=== PATIENT | female | born 1985 | race Caucasian/White ===

== ENCOUNTER 2019-10-12 08:56 | Emergency (ER) | payer MEDICAID ==
[~2019-10-12] VITALS: Ht 157.5 cm; Wt 94.0 kg
[2019-10-12 09:00] VITALS: BP 132/98
--- NOTE | 2019-10-12 09:47 | NUR ---
PT WAS IN HER ROOM AND TALKING NON-SENSE. RN HAD LEFT THE ROOM. 2 TECH WERE OUTSIDE THE DOOR. THE PATIENT DECIDED TO LEAVE BEFORE BEING SEEN. TECH ALLOWED THE PATIENT TO LEAVE AND DID NOT INFORM RN OR MD OF ATTEMPT TO LWOP. CHARGE NURSE AND MICK NOTIFIED. LEONIE LUBB-TEX CALLED TO LOOK FOR THE PATIENT
== END 2019-10-12 10:00 | disposition left against medical advice (07) ==
LOC: ER 08:57
DX: Z13.39 Encounter for screening examination for other mental health and behavioral disorders (principal); Z53.21 Procedure and treatment not carried out due to patient leaving prior to being seen by health care provider

== ENCOUNTER 2019-11-07 18:07 | Emergency (ER) | payer MEDICAID ==
[~2019-11-07] VITALS: Ht 157.5 cm; Wt 81.0 kg
[2019-11-07 18:28] LABS: CLARITY,URINE SLIGHTLY CLOUDY (Clear); COLOR,URINE YELLOW (Yellow); GLUCOSE, URINE NEGATIVE (Neg); KETONES,URINE 15 mg/dl (Neg); LEUKOCYTE ESTERASE ,URINE TRACE (Neg); NITRITES, URINE NEGATIVE (Neg); OCCULT BLOOD,URINE NEGATIVE (Neg); PROTEIN,URINE TRACE mg/dl (Neg); URINE HCG NEGATIVE (NEG); UROBILINOGEN,URINE 0.2 E.U/dL (0.2-1.0)
[2019-11-07 18:34] LABS: UA COLLECTION TYPE CLN CATCH MIDSTREAM
[2019-11-07 18:36] LABS: MUCUS STRANDS MANY /LPF (Neg); SQUAMOUS EPITHELIAL CELL,UR MANY /LPF (FEW)
[2019-11-07 18:38] LABS: HYALINE CASTS 0-3 /LPF (NEGATIVE)
[2019-11-07 18:40] LABS: BACTERIA,URINE 3+ /HPF (Neg); RBC,URINE 0-2 /HPF (0-2); WBC,URINE 0-4 /HPF (0-4); YEAST FEW /HPF (NEGATIVE)
[2019-11-07 18:42] LABS: URINE AMPHETAMINE SCREEN NEGATIVE (Neg); URINE BARBITUATE SCREEN NEGATIVE (Neg); URINE BENZODIAZEPINES SCREEN NEGATIVE (Neg); URINE CANNABINOID SCREEN POSITIVE (Neg); URINE COCAINE SCREEN NEGATIVE (Neg); URINE METHADONE SCREEN NEGATIVE (Neg); URINE OPIATE SCREEN NEGATIVE (Neg); URINE PHENCYCLIDINE SCREEN NEGATIVE (Neg)
[2019-11-07 18:56] LABS: BASOPHILS % (AUTO) 0.3 % (0-1); EOSINOPHILS % (AUTO) 0.3 % (0-6); HEMATOCRIT 42.6 % (35.0-45.0); HEMOGLOBIN 14.6 g/dl (12.0-16.0); LYMPHOCYTES # (AUTO) 1.3 X10'3 (1.1-4.8); LYMPHOCYTES % (AUTO) 12.7 % (21-51); MEAN CORPUSCULAR HEMOGLOBIN 32.5 PG (27.0-31.0); MEAN CORPUSCULAR HGB CONC 34.3 g/dL (33.0-36.5); MEAN PLATELET VOLUME 7.5 FL (7.4-10.4); MONOCYTES # (AUTO) 1.4 X10'3 (0-0.9); MONOCYTES % (AUTO) 13.2 % (2-12); NEUTROPHILS # (AUTO) 7.7 X10'3 (1.8-7.7); NEUTROPHILS % (AUTO) 73.5 % (42-75); PLATELET COUNT 307 X10'3 (140-440); RED BLOOD COUNT 4.49 X10'6 (4.20-5.60); RED CELL DISTRIBUTION WIDTH 13.1 % (11.5-14.5); WHITE BLOOD COUNT 10.5 X10'3 (4.5-11.0)
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
[2019-11-07 19:12] LABS: ALANINE AMINOTRANSFERASE 28 U/L (12-78); ALBUMIN 4.2 G/DL (3.4-5.0); ALBUMIN/GLOBULIN RATIO 1.2 (1.1-1.5); ALKALINE PHOSPHATASE 60 IU/L (46-116); ANION GAP 11 (8-16); ASPARTATE AMINO TRANSFERASE 17 U/L (10-37); BILIRUBIN,TOTAL 0.4 MG/DL (0.1-1.0); BLOOD UREA NITROGEN 12 MG/DL (7-18); BUN/CREATININE RATIO 13.3 (6.6-38.0); CHLORIDE 105 MMOL/L (99-107); GLUCOSE 117 MG/DL (70-104); SODIUM 141 MMOL/L (135-145); TOTAL CARBON DIOXIDE 25.1 MMOL/L (24-32); TOTAL PROTEIN 7.8 G/DL (6.4-8.2); eGFR 72 ML/MIN
[2019-11-07] MEDS ORDERED: potassium Cl 20 mEq SR tablet PO ONE (19:20)
[2019-11-07] MEDS ORDERED: NO HOME MEDS (19:22)
[2019-11-07 19:24] LABS: ETHANOL < 0.010 GM/DL (0.0-0.010)
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
--- NOTE | 2019-11-07 19:50 | NUR ---
Mother [phone] grandmother-Corina [phone]
--- NOTE | 2019-11-07 20:35 | NUR ---
pt is sleeping, no s/s of distress noted.
--- NOTE | 2019-11-07 21:53 | NUR ---
pt encouraged to take potassium meds by me and Dr Jolley but pt still refuses.
--- NOTE | 2019-11-07 22:47 | NUR ---
pt is sleeping, no s/s of distress noted.
--- NOTE | 2019-11-08 00:39 | NUR ---
pt continues to sleep, rr unlabored, no s/s of distress noted.
--- NOTE | 2019-11-08 01:15 | NUR ---
ASSUMED CARE OF PATIENT FROM PRIMARY RN ELOISA . PATIENT SLEEPING COMFORTABLY ON HER BACK AT THIS TIME . RESP UNLABORED . WILL CONTINUE TO MONITOR
--- NOTE | 2019-11-08 02:46 | NUR ---
pt continues to sleep, no s/s of distress noted.
--- NOTE | 2019-11-08 03:49 | NUR ---
pt continues to sleep, no s/s of distress noted.
[2019-11-08] MEDS ORDERED: nicotine 21mg patch - 24 hr TD ONE (06:45)
--- NOTE | 2019-11-08 07:02 | NUR ---
Patient given a nicotine patch. Patient pacing and asking and writing down everyones name who walks by. Continue to monitor.
[2019-11-08] MEDS ORDERED: ARIP10TA15 PO (08:08)
[2019-11-08] MEDS ORDERED: LAMO100T2 PO (08:08)
[2019-11-08] MEDS ORDERED: LORazepam 2 mg/ml vial IM ONE (08:35)
[2019-11-08] MEDS ORDERED: haloperidol lactate 5mg/ml inj IM ONE (08:35)
[2019-11-08] MEDS ORDERED: diphenhydrAMINE 50 mg/ml inj IM ONE (08:35)
--- NOTE | 2019-11-08 08:40 | NUR ---
Patient is reading the Bible loudly. RN asked patient to stop. Patient states she has to read it out loud. RN explained that it is bothering other patients. Patient said to RN "you are ungodly!". Patient continues to read. Patient to be evaluated by Francois STOUT. Continue to monitor.
[2019-11-08] MEDS ORDERED: ARIPIPRAZOLE 10 MG TABLET PO SCH (09:00)
[2019-11-08] MEDS ORDERED: lamoTRIgine 100mg tablet PO SCH (09:00)
--- NOTE | 2019-11-08 09:01 | NUR ---
Patient refused her meds and stated "I don't take medications from strangers.". Then patient was upset because RN interupted her reading. GIRISH Parrish is now with patient.
--- NOTE | 2019-11-08 09:40 | NUR ---
GIUSEPPE Parrish evaluating patient. Continue to monitor.
--- NOTE | 2019-11-08 11:26 | NUR ---
Patient just came out of the bathroom after cleaning up. Patient in her room and appears to be responding to internal stimuli. Patient stops at the nurses station and states "I talk to spirits, i CAN SEE SPIRITS and I'M NOT SCHIZOPHRENIC!". Patient walking back and forth with purpose. Continue to monitor.
--- NOTE | 2019-11-08 12:02 | NUR ---
Patient is reading out loud from Bible again. Patient read for over 2 hours this morning. Continue to monitor.
--- NOTE | 2019-11-08 12:44 | NUR ---
Patient reading Bible again and in the middle of a verse yells out "I'm Not Schizophrenic!. And then keeps on reading. Continue to monitor.
--- NOTE | 2019-11-08 14:00 | NUR ---
Patient up and reading, straightening her bed. Continue to monitor.
--- NOTE | 2019-11-08 15:41 | NUR ---
Patient sleeping. No distress observed. Continue to monitor.
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
[2019-11-08] MEDS ORDERED: LORazepam 1 MG tablet PO ONE (17:25)
--- NOTE | 2019-11-08 17:43 | NUR ---
Patient asked for 1 mg Ativan and "I won't take anything else." Dr Abbasi ordered med and RN gave patient medication. Continue to monitor.
--- NOTE | 2019-11-08 17:45 | NUR ---
Patient accepted by [facility] by Dr Pace to be transferred at [address] [place] [address].
--- NOTE | 2019-11-08 19:35 | NUR ---
One to one with the patient to assess for severity of disordered thought processes. She appears to be resonding to internal stimuli and is observed smiling and whispering to herself. Her verbal responses were disorganized, tangential and she has very poor insight.
[2019-11-08 20:36] VITALS: BP 152/77
[2019-11-09] MEDS ORDERED: nicotine 21mg patch - 24 hr TD SCH (08:00)
== END 2019-11-08 20:39 ==
LOC: ER 18:08
DX: F32.9 Major depressive disorder, single episode, unspecified (principal); R45.851 Suicidal ideations; Z88.1 Allergy status to other antibiotic agents
CPT/HCPCS: 36415; 80053; 80305; 80320; 81001; 81025; 84443; 85025; 99285

== ENCOUNTER 2020-08-09 14:51 | Emergency (ER) | payer MEDICAID ==
[~2020-08-09] VITALS: Ht 175.3 cm; Wt 90.9 kg
[~2020-08-09 14:51] MED LIST: ARIP10TA15 PO; LAMO100T2 PO
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
[2020-08-09 15:57] LABS: URINE HCG NEGATIVE (NEG)
[2020-08-09 15:58] LABS: CLARITY,URINE CLOUDY (Clear); COLOR,URINE YELLOW (Yellow); GLUCOSE, URINE NEGATIVE (Neg); KETONES,URINE TRACE mg/dl (Neg); LEUKOCYTE ESTERASE ,URINE NEGATIVE (Neg); NITRITES, URINE NEGATIVE (Neg); OCCULT BLOOD,URINE NEGATIVE (Neg); PH,URINE 6.5 (4.8-8.0); PROTEIN,URINE NEGATIVE (Neg); UROBILINOGEN,URINE 0.2 E.U/dL (0.2-1.0)
[2020-08-09 16:02] LABS: UA COLLECTION TYPE CLN CATCH MIDSTREAM
[2020-08-09 16:05] LABS: SQUAMOUS EPITHELIAL CELL,UR MODERATE /LPF (FEW)
[2020-08-09 16:06] LABS: MUCUS STRANDS MANY /LPF (Neg); RBC,URINE 0-2 /HPF (0-2); WBC,URINE 0-4 /HPF (0-4)
[2020-08-09 16:07] LABS: AMORPHOUS PHOSPHATES 3+
[2020-08-09 16:08] LABS: BACTERIA,URINE 1+ /HPF (Neg); HYALINE CASTS 0-3 /LPF (NEGATIVE)
[2020-08-09 16:10] LABS: URINE AMPHETAMINE SCREEN NEGATIVE (Neg); URINE BARBITUATE SCREEN NEGATIVE (Neg); URINE BENZODIAZEPINES SCREEN NEGATIVE (Neg); URINE CANNABINOID SCREEN NEGATIVE (Neg); URINE COCAINE SCREEN NEGATIVE (Neg); URINE METHADONE SCREEN NEGATIVE (Neg); URINE OPIATE SCREEN NEGATIVE (Neg); URINE PHENCYCLIDINE SCREEN NEGATIVE (Neg)
[2020-08-09 16:15] LABS: BASOPHILS % (AUTO) 0.4 % (0-1); EOSINOPHILS # (AUTO) 0.1 X10'3 (0-0.9); EOSINOPHILS % (AUTO) 0.5 % (0-6); HEMATOCRIT 41.3 % (35.0-45.0); LYMPHOCYTES # (AUTO) 1.4 X10'3 (1.1-4.8); LYMPHOCYTES % (AUTO) 11.6 % (21-51); MEAN CORPUSCULAR HGB CONC 33.9 g/dL (33.0-36.5); MEAN CORPUSCULAR VOLUME 94.4 FL (78-98); MEAN PLATELET VOLUME 7.2 FL (7.4-10.4); MONOCYTES # (AUTO) 0.8 X10'3 (0-0.9); MONOCYTES % (AUTO) 6.6 % (2-12); NEUTROPHILS # (AUTO) 9.5 X10'3 (1.8-7.7); NEUTROPHILS % (AUTO) 80.9 % (42-75); PLATELET COUNT 313 X10'3 (140-440); RED BLOOD COUNT 4.37 X10'6 (4.20-5.60); WHITE BLOOD COUNT 11.7 X10'3 (4.5-11.0)
[2020-08-09 16:30] LABS: ALANINE AMINOTRANSFERASE 20 U/L (12-78); ALBUMIN 4.3 G/DL (3.4-5.0); ALBUMIN/GLOBULIN RATIO 1.1 (1.1-1.5); ALKALINE PHOSPHATASE 69 IU/L (46-116); ANION GAP 7 (8-16); ASPARTATE AMINO TRANSFERASE 9 U/L (10-37); BILIRUBIN,TOTAL 0.3 MG/DL (0.1-1.0); BLOOD UREA NITROGEN 11 MG/DL (7-18); BUN/CREATININE RATIO 13.1 (6.6-38.0); CHLORIDE 104 MMOL/L (99-107); CREATININE 0.84 MG/DL (0.40-0.90); GLUCOSE 119 MG/DL (70-104); POTASSIUM 3.8 MMOL/L (3.5-5.1); SODIUM 136 MMOL/L (135-145); TOTAL CARBON DIOXIDE 24.7 MMOL/L (24-32); TOTAL PROTEIN 8.1 G/DL (6.4-8.2); eGFR 78 ML/MIN
[2020-08-09 16:38] LABS: ETHANOL < 0.010 GM/DL (0.0-0.010)
--- NOTE | 2020-08-09 16:40 | NUR ---
Received call from Pt's mother Ceci Ordaz. Ceci's contact # [phone]. Ceci stated that Pt threw away all forms of identification.
[2020-08-09] MEDS ORDERED: NO HOME MEDS (19:14)
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
--- NOTE | 2020-08-09 22:25 | NUR ---
PT RESTING IN BED ON BACK. RR OF 15. NO S/S OF DISTRESS OR PAIN. PT HAS REPORTED NO NEEDS AT THIS TIME. WILL CONTINUE TO MONITOR.
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
--- NOTE | 2020-08-10 03:28 | NUR ---
patient resting in bed on back. respiratory rate of 15. no s/s of distress or pain. will continue to monitor.
--- NOTE | 2020-08-10 06:14 | NUR ---
PT AWAKE AND ASKING FOR AN CORK WIRER PER TECH WHEN GETTING VITAL SIGNS.
--- NOTE | 2020-08-10 06:40 | NUR ---
Patient on bed asleep.Respirations regular.We will monitor.
--- NOTE | 2020-08-10 07:40 | NUR ---
patient up to the bathroom.
--- NOTE | 2020-08-10 08:00 | NUR ---
patient saw "ming" on diet slip,reported to RN this is not her name,and that it needs to be change to Ariela.
--- NOTE | 2020-08-10 09:56 | NUR ---
patient asleep on right side.Respirations regular.Still awaiting placement.
--- NOTE | 2020-08-10 12:06 | NUR ---
Called Ceci/mom regarding medrec,per mom patient only takes invega inconsistently once a month,no routine medications since she has not seen a psychiatrist yet and that she is very non compliant with meds.Patient asleep at this time,we will monitor.
--- NOTE | 2020-08-10 12:54 | NUR ---
sitting upright eating lunch.
--- NOTE | 2020-08-10 13:36 | NUR ---
patient asleep.We will monitor.
--- NOTE | 2020-08-10 14:41 | NUR ---
Breaking primary RN. Pt sleeping in bed on left side. Respirations unlabored, NAD.
--- NOTE | 2020-08-10 14:57 | NUR ---
Per Ronit she will contact psychiatrist to obtain prn med and possibly get order for routine medication. Addendum: 08/10/20 at 1459 by VIOLETTE Ronit/Director KITTY.
--- NOTE | 2020-08-10 15:16 | NUR ---
Given a pitcher of water,wandering in the room.Remains calm and cooperative.We will monitor.
[2020-08-10] MEDS ORDERED: LORazepam 1 MG tablet PO PRN (15:40)
--- NOTE | 2020-08-10 16:56 | NUR ---
patient on bed asleep.
--- NOTE | 2020-08-10 17:20 | NUR ---
patient on high fowlers asleep.
--- NOTE | 2020-08-10 17:35 | NUR ---
Per [facility],patient was accepted today at 1520 at [facility]/upstairs by .[facility] will call tomorrow for more details.
[2020-08-10] MEDS ORDERED: PALIPERIDONE 3 MG TAB.ER.24 PO SCH (21:00)
--- NOTE | 2020-08-10 21:04 | NUR ---
pt sleeping soundly, resists waking to take scheduled medication. Will try medication administration at a later time. Pt hair piece with clip on bedside table taken a placed with pt belongings.
--- NOTE | 2020-08-10 22:14 | NUR ---
Pt declined medication in an appropriate manner
[2020-08-11 05:18] VITALS: BP 109/56
[2020-08-11] MEDS ORDERED: nicotine 21mg patch - 24 hr TD ONE (06:40)
--- NOTE | 2020-08-11 06:41 | NUR ---
BETH FROM [facility] CALLED AND WILL ARRANGE ADMIT
--- NOTE | 2020-08-11 07:00 | NUR ---
PT ASKED FOR A NICOTINE PATCH, SAYS I SMOKE ALOT. AROUND 2 PACKS A DAY. NICOTINE PATCH APPLIED TO LEFT SHOULDER AT [id number]
== END 2020-08-11 07:34 ==
LOC: ER 14:52
DX: F29 Unspecified psychosis not due to a substance or known physiological condition (principal); F22 Delusional disorders; F31.9 Bipolar disorder, unspecified; F17.200 Nicotine dependence, unspecified, uncomplicated; Z88.2 Allergy status to sulfonamides; Z88.1 Allergy status to other antibiotic agents; Z79.899 Other long term (current) drug therapy
CPT/HCPCS: 36415; 80053; 80305; 80320; 81001; 81025; 84443; 85025; 99285